=== PATIENT | female | born 1970 | race Two or more races ===

== ENCOUNTER 2021-11-15 20:12 | Emergency (ER) | payer BC ==
[~2021-11-15] VITALS: Ht 172.7 cm; Wt 86.2 kg
[2021-11-15] MEDS ORDERED: PEPCID AC20 MG PO (20:46)
[2021-11-15] MEDS ORDERED: ETODOLAC300 MG (20:46)
== END 2021-11-16 00:07 | disposition home or self-care (01) ==
LOC: ER 20:12
DX: R10.84 Generalized abdominal pain (principal)